=== PATIENT | female | born 1970 | race Two or more races ===

== ENCOUNTER 2022-04-22 09:02 | Outpatient (CLI) | payer MEDICARE ==
[2022-04-22 15:56] LABS: BASOPHILS # (AUTO) 0.1 10^3/uL (0.0-0.1); EOSINOPHILS # (AUTO) 0.3 10^3/uL (0.0-0.7); HCT - HEMATOCRIT 44.8 % (37.0-47.0); HGB - HEMOGLOBIN 14.3 g/dL (12.0-16.0); LYMPHOCYTES # (AUTO) 2.8 10^3/uL (1.5-3.5); LYMPHOCYTES % (AUTO) 29.9 %; MEAN CORPUSCULAR HEMOGLOBIN 29.9 pg (27.0-31.0); MEAN CORPUSCULAR HGB CONC 31.9 g/dL (32.0-36.0); MEAN CORPUSCULAR VOLUME 93.5 fL (81.0-99.0); MEAN PLATELET VOLUME 11.9 fL (7.9-10.8); MONOCYTES # (AUTO) 0.6 10^3/uL (0.0-1.0); MONOCYTES % (AUTO) 6.8 %; NEUTROPHILS # (AUTO) 5.5 10^3/uL (1.5-6.6); PLT - PLATELET COUNT 293 10^3/uL (130-450); RED BLOOD COUNT 4.79 10^6/uL (4.20-5.40); RED CELL DISTRIBUTION WIDTH 14.4 % (12.0-15.0); WHITE BLOOD COUNT 9.4 x10^3/uL (4.8-10.8)
[2022-04-22 16:30] LABS: ALBUMIN 4.4 g/dL (3.2-5.5); ALBUMIN/GLOBULIN RATIO 1.4 (1.0-2.2); BILIRUBIN,TOTAL 0.3 mg/dL (0.2-1.0); CALCIUM 9.7 mg/dL (8.5-10.3); CREATININE 0.7 mg/dL (0.4-1.0); POTASSIUM 3.8 mmol/L (3.5-5.0); TOTAL PROTEIN 7.6 g/dL (6.7-8.2)
[2022-04-22 16:41] LABS: THYROID STIMULATING HORMONE 2.73 uIU/mL (0.34-5.60)
[2022-04-22 23:08] LABS: CHLAMYDIA TRACHOMATIS DNA NEGATIVE (NEGATIVE); NEISSERIA GONORRHOEAE DNA NEGATIVE (NEGATIVE); TRICHOMONAS VAGINALIS DNA NEGATIVE (NEGATIVE)
[2022-04-23 08:09] LABS: HCV AB <0.1 s/co ratio (0.0-0.9); RPR Non Reactive (Non Reactive)
[2022-04-23 09:08] LABS: HEPATITIS BE ANTIGEN Negative (Negative)
[2022-04-25 09:08] LABS: HEPATITIS BE ANTIBODY Negative (Negative)
== END 2022-04-22 09:03 | disposition home or self-care (01) ==
LOC: LAB.S 09:02
PROVIDERS: ATTEND Nurse Practitioner Family
DX: F41.8 Other specified anxiety disorders (principal); E55.9 Vitamin D deficiency, unspecified; Z11.59 Encounter for screening for other viral diseases; Z13.1 Encounter for screening for diabetes mellitus; Z13.220 Encounter for screening for lipoid disorders; Z11.3 Encounter for screening for infections with a predominantly sexual mode of transmission
CPT/HCPCS: 36415; 80053; 80061; 82306; 83721; 83970; 84443; 85025; 86592; 86707; 86803; 87350; 87389; 87491; 87591; 87661

== ENCOUNTER 2022-05-04 07:34 | Outpatient (CLI) | payer MEDICARE ==
--- NOTE | 2022-05-04 10:33 | Ultrasound Report ---
PROCEDURE: Abdomen Limited INDICATIONS: POST MENOPAUSAL, LIVER CYST TECHNIQUE: Real-time focused scanning was performed of the abdomen, with image documentation. COMPARISON: None. FINDINGS: Liver is normal in size. Normal liver parenchymal echotexture is seen. A 1.9 x 1.2 x 1.7 c m anechoic structure is seen in right hepatic lobe without internal vascularity. 1 x 0.7 x 1.3 cm ane choic structure is also noted in right hepatic lobe and show no internal vascularity. No solid appear ing hepatic lesion is noted. There is no gallstone. No gallbladder wall thickening or pericholecystic fluid. No sonographic Oliveira 's sign. There is no intrahepatic biliary ductal dilatation. Common bile duct measures up to 3.8 cm in diamete r and is within normal limits. Visualized portion of pancreas shows no gross abnormality. Right kidney measures 10.5 cm in length and 1.2 cm in renal cortical thickness. 5 x 4 x 5 mm cyst is seen in mid pole of right kidney. 6 x 6 x 4 mm cyst is also seen in lower pole of right kidney. Promi nent calcification is noted in mid to lower pole of right renal collecting system which may represent a staghorn calculus. There is no hydronephrosis. No solid appearing renal lesion. IMPRESSION: 1. 2 small right hepatic lobe cysts as above. No gross solid appearing hepatic lesion. 2. Normal-appearing gallbladder. No biliary ductal dilatation. Normal-appearing pancreas. 3. 2 right renal cysts as above. Possible staghorn calculus in lower pole of right kidney. No hydrone phrosis. Reviewed by: Joselito Moran MD on 05/04/2022 10:32 AM PDT Approved by: Joselito Moran MD on 05/04/2022 10:32 AM PDT Station ID: [id number]
--- NOTE | 2022-05-04 12:02 | DEXA Report ---
PROCEDURE: Dexa Spine and/or Hip INDICATIONS: POSTMENOPAUSAL STATE TECHNIQUE: Dual energy x-ray absorptiometry (DXA) was performed on a [employer] System. Regions measur ed are the AP Spine, femoral neck, and if needed forearm. COMPARISON: None. FINDINGS: Lumbar Spine: Bone Mineral Density 1.006 g/cm/cm,T score -1.5, mild osteopenia Left Hip: Bone Mineral Density 0.885 g/cm/cm,T score -1.0, normal Left Femoral Neck: Bone Mineral Density 0.865 g/cm/cm, T score -1.2, minimal osteopenia (T score greater or equal to -1.0: NORMAL) (T score from -1.1 to -2.4: OSTEOPENIA) (T score less than or equal to -2.5 to: OSTEOPOROSIS) Impression: Osteopenia most notable in the lumbar spine. Patients with diagnosis of osteoporosis or osteopenia should have regular bone mineral density assess ment. For those eligible for Medicare, routine testing is allowed once every 2 years. Testing frequ ency can be increased for patients who have rapidly progressing disease or for those who are receivin g medical therapy to restore bone mass. Reviewed by: Eboni Ackerman MD on 05/04/2022 12:01 PM PDT Approved by: Eboni Ackerman MD on 05/04/2022 12:01 PM PDT Station ID: [id number]
== END 2022-05-04 07:35 | disposition home or self-care (01) ==
LOC: DI 07:34
PROVIDERS: ATTEND Nurse Practitioner Family
DX: Z78.0 Asymptomatic menopausal state (principal); K76.89 Other specified diseases of liver; F17.200 Nicotine dependence, unspecified, uncomplicated; N28.1 Cyst of kidney, acquired

== ENCOUNTER 2022-07-29 08:59 | Outpatient (CLI) | payer MEDICARE | END 2022-07-29 09:00 | disposition home or self-care (01) | LOC: LAB 08:59 | PROVIDERS: ATTEND Student in an Organized Health Care Education/Training Program | DX: E21.0 Primary hyperparathyroidism (principal) | CPT/HCPCS: 81599; 82340; 82570 ==

== ENCOUNTER 2022-08-01 11:45 | Outpatient (CLI) | payer MEDICARE ==
--- NOTE | 2022-08-01 12:57 | CT Report ---
PROCEDURE: Low Dose Lung Cancer Screen INDICATIONS: SMOKER TECHNIQUE: Noncontrast low-dose axial images were acquired from the pulmonary apices to the posterior costophren ic angles. Multiplanar MIP reformats were then reconstructed. For radiation dose reduction, the follo wing was used: automated exposure control, adjustment of mA and/or kV according to patient size. COMPARISON: None. FINDINGS: Image quality: Excellent. Lungs and pleura: Mild apical predominant centrilobular and paraseptal emphysematous changes. No benjy picious pulmonary nodule or mass identified. Mediastinum: Normal in size. No pericardial effusion. No structural enlarged mediastinal lymph node. Bones and chest wall: No suspicious bony lesions. No vertebral body compression fractures. No axil mar or supraclavicular adenopathy by size criteria. Thyroid partially visualized with no gross evid ence of mass. Abdomen: Kidneys partially visualized and contain bilateral nonobstructing renal calculi. IMPRESSION: No suspicious pulmonary nodule or mass. Lung-RADS Category 1. Recommendation: Continued annual low-dose screening CT of the chest. Reviewed by: Sin Farfan MD on 08/01/2022 12:55 PM PDT Approved by: Sin Farfan MD on 08/01/2022 12:55 PM PDT Station ID: [id number]
== END 2022-08-01 11:46 | disposition home or self-care (01) ==
LOC: DI 11:45
PROVIDERS: ATTEND Nurse Practitioner Family
DX: Z12.2 Encounter for screening for malignant neoplasm of respiratory organs (principal); F17.210 Nicotine dependence, cigarettes, uncomplicated

== ENCOUNTER 2023-01-24 10:18 | Outpatient (CLI) | payer MEDICARE | END 2023-01-24 10:19 | disposition home or self-care (01) | LOC: LAB 10:18 | PROVIDERS: ATTEND Student in an Organized Health Care Education/Training Program | DX: E21.0 Primary hyperparathyroidism (principal) | CPT/HCPCS: 36415; 83970 ==

== ENCOUNTER 2023-09-05 08:50 | Outpatient (CLI) | payer MEDICARE ==
--- NOTE | 2023-09-05 18:23 | CT Report ---
PROCEDURE: Low Dose Lung Cancer Screen INDICATIONS: SMOKER TECHNIQUE: A CT scan of the chest was performed. Intravenous contrast media was not administered. Images were re corded and evaluated at appropriate window settings. Reformats: axial MIP of the chest, coronal and s agittal. For radiation dose reduction, the following was used: automated exposure control, adjustment of mA and/or kV according to patient size. COMPARISON: CT chest on August 01, 2022. FINDINGS: Image quality: Excellent. Prior cancer history: No. Lungs and pleura: Compared to CT chest dated August 01, 2022, no new or enlarging solid pulmonary nodules or consolidation. Left fissure triangular lymph node measuring 3 mm. Left lower lobe calcifie d granuloma, stable. Mild apical predominant centrilobular and paraseptal emphysema. No pleural effus ion or pneumothorax. Mediastinum: Heart size is normal. No pericardial effusion. No large vessel abnormality. No mediastin al adenopathy by size criteria. Chest wall and lower neck: Thyroid is unremarkable. No axillary or supraclavicular adenopathy by size . Bones: No aggressive osseous abnormality. Upper Abdomen: Nonobstructive nephrolith in the right upper pole measuring 3 mm (65). Nonobstructiv e nephrolith in the left upper pole measuring 3 mm () 2 simple cysts in the left hepatic lobe, st able.. IMPRESSION: 1. No suspicious pulmonary nodule or consolidation. Lung RAD: 1 - Negative. Recommendation: Continue annual screening in 12 Months with LDCT 2. Mild emphysema. Reviewed by: Leo Butcher MD on 09/05/2023 6:21 PM PDT Approved by: Leo Butcher MD on 09/05/2023 6:21 PM PDT Station ID: [id number]
== END 2023-09-05 08:51 | disposition home or self-care (01) ==
LOC: DI 08:50
PROVIDERS: ATTEND Physician Assistant
DX: Z12.2 Encounter for screening for malignant neoplasm of respiratory organs (principal); F17.210 Nicotine dependence, cigarettes, uncomplicated

== ENCOUNTER 2024-05-02 14:30 | Outpatient (CLI) | payer MEDICARE ==
--- NOTE | 2024-05-02 19:49 | XRAY Report ---
PROCEDURE: Foot 1-2V RT INDICATIONS: RESIDUAL FOREIGN BODY IN SOFT TISSUE TECHNIQUE: 2 views of the foot were obtained. COMPARISON: None FINDINGS: Bones: No fractures or dislocations. No suspicious bony lesions. Soft tissues: Unremarkable. No radiopaque foreign body. IMPRESSION: No radiopaque foreign body Reviewed by: Oscar Menendez MD on 05/02/2024 6:47 PM AKDT Approved by: Oscar Menendez MD on 05/02/2024 6:47 PM AKDT Station ID: [id number]
== END 2024-05-02 14:31 | disposition home or self-care (01) ==
LOC: DI 14:30
PROVIDERS: ATTEND Emergency Medicine
DX: M79.5 Residual foreign body in soft tissue (principal)